=== PATIENT | female | born 1970 | race Caucasian/White ===

== ENCOUNTER 2020-12-27 19:28 | Emergency (ER) | payer MEDICARE, OTHER ==
[~2020-12-27] VITALS: Ht 154.9 cm; Wt 70.8 kg
[2020-12-27 19:45] LABS: *BLOOD, URINE NEGATIVE (NEGATIVE); *COLOR,URINE AMBER (YELLOW); *KETONES,URINE 1+ (NEGATIVE); *UROBILINOGEN,URINE 0.2 E.U./dl (NORMAL); LEUKOCYTE ESTERASE ,URINE NEGATIVE (NEGATIVE); NITRITE, URINE NEGATIVE (NEGATIVE); UGLUCOSE NEGATIVE (NEGATIVE)
[2020-12-27 19:46] LABS: *BILIRUBIN,URIN 1+ (NEGATIVE); *CLARITY,URINE CLEAR (CLEAR)
[2020-12-27] MEDS ORDERED: KETOROLAC TROMETHAMINE 30 MG INJ ONE (19:59)
[2020-12-27] MEDS ORDERED: ONDANSETRON 4 MG/2 ML VIAL IV ONE (20:00)
[2020-12-27] MEDS ORDERED: ONDANSETRON 4 MG/2 ML VIAL ONE (20:00)
[2020-12-27] MEDS ORDERED: FENTANYL CITRATE 100 MCG/2 ML AMPUL ONE (20:00)
[2020-12-27] MEDS ORDERED: KETOROLAC TROMETHAMINE 30 MG INJ IVP ONE (20:00)
[2020-12-27] MEDS ORDERED: IV NORMAL SALINE 1000 ML BAG IV ONE (20:00)
[2020-12-27] MEDS ORDERED: FENTANYL CITRATE 100 MCG/2 ML AMPUL IV ONE (20:00)
[2020-12-27 20:03] LABS: BASOPHILS % (AUTO) 0.4 % (0.0-2.0); EOSINOPHILS # (AUTO) 0.1 K/uL (0.0-0.7); EOSINOPHILS % (AUTO) 0.9 % (0.0-7.0); HEMATOCRIT 38.5 % (31.2-41.9); HEMOGLOBIN 12.8 g/dL (10.9-14.3); LYMPHOCYTES # (AUTO) 2.3 K/uL (20.0-40.0); LYMPHOCYTES % (AUTO) 33.1 % (20.5-51.5); MEAN CORPUSCULAR HEMOGLOBIN 29.8 uug (24.7-32.8); MEAN CORPUSCULAR HGB CONC 33 g/dL (32.3-35.6); MEAN CORPUSCULAR VOLUME 89.6 fL (75.5-95.3); MONOCYTES # (AUTO) 0.5 K/uL (2.0-10.0); MONOCYTES % (AUTO) 6.7 % (0.0-11.0); NEUTROPHILS # (AUTO) 4.1 K/uL (1.8-8.9); NEUTROPHILS % (AUTO) 58.9 % (38.5-71.5); PLATELET COUNT (AUTO) 246 K/uL (179-408); RED BLOOD CELL COUNT(AUTO) 4.29 MIL/uL (3.63-4.92)
[2020-12-27 20:30] LABS: CREATININE 0.8 mg/dL (0.6-1.3); POTASSIUM 3.6 mmol/L (3.5-5.1)
[2020-12-27 20:36] LABS: BILIRUBIN,DIRECT 0.1 mg/dL (0.0-0.2); BILIRUBIN,TOTAL 0.4 mg/dL (0.2-1.0); TOTAL PROTEIN, SERUM 7.8 g/dL (6.4-8.2)
[2020-12-27] MEDS ORDERED: MORPHINE SULFATE 2 MG/1 ML DISP.SYRIN IV ONE (21:00)
[2020-12-27] MEDS ORDERED: IV NORMAL SALINE 250 ML IV ONE (21:18)
[2020-12-27] MEDS ORDERED: SWABABLE VALVE TRANSFER SET EA MC ONE (21:18)
[2020-12-27] MEDS ORDERED: IOHEXOL 300MG/ML 100 ML INFUS..BTL ONE (21:18)
[2020-12-27] MEDS ORDERED: MORPHINE SULFATE 2 MG/1 ML DISP.SYRIN ONE (21:59)
[2020-12-27] MEDS ORDERED: DOCU100C36 PO (22:32)
--- NOTE | 2020-12-27 22:47 | NUR ---
Patient discharged to home in stable condition. Written and verbal after care instructions given. Patient and son verbalizes understanding of instructions. Stressed follow up or return to ER for worsening s/s.
[2020-12-27 22:48] VITALS: BP 122/68
== END 2020-12-27 22:49 | disposition home or self-care (01) ==
LOC: ER 19:32
DX: K59.00 Constipation, unspecified (principal); R10.11 Right upper quadrant pain; Z90.49 Acquired absence of other specified parts of digestive tract; R11.0 Nausea
CPT/HCPCS: 74177; 76705; 80048; 80076; 81003; 83690; 85025; 93005; 96374; 96375; 99285; J1885; J2270; J2405; J3010; Q9967; A4663; J7050